=== PATIENT | female | born 1985 | race African-American/Black ===

== ENCOUNTER 2018-07-12 22:46 | Emergency (ER) | payer SELFPAY ==
[~2018-07-12] VITALS: Ht 170.2 cm; Wt 70.0 kg
[2018-07-12] MEDS ORDERED: ACETAMINOPHEN 500MG TABLET PO ONE (23:30)
[2018-07-13] MEDS ORDERED: ONDANSETRON HCL 4MG/2ML INJ IV ONE (01:00)
[2018-07-13] MEDS: LEVETIRACETAM 500MG TABLET PO ONE ×2 (01:12→01:41)
[2018-07-13] MEDS: PHENYTOIN SODIUM EXTENDED 100MG CAPSULE PO ONE ×2 (01:12→01:41)
[2018-07-13 06:10] VITALS: BP 113/65
== END 2018-07-13 06:15 | disposition home or self-care (01) ==
LOC: ER 22:46
DX: R56.9 Unspecified convulsions (principal); Z91.19 Patient's noncompliance with other medical treatment and regimen
CPT/HCPCS: 82962; 96374; 99284; J2405